=== PATIENT | male | born 1945 | race Caucasian/White ===

== ENCOUNTER → 2024-01-24 | Outpatient (CLI) | payer OTHER, SELFPAY ==
--- NOTE | 2024-01-24 12:56 | ECHOCS_ITS ---
Reason For Study: ASHD Procedure This was a 2D Doppler, Color Flow transthoracic echocardiogram. The study was technically difficult. Contrast injection was performed. Exam performed in department. Left Ventricle Mild concentric left ventricular hypertrophy. Normal LV size. The left ventricular ejection fraction is 60 %. Normal diastology for age. Right Ventricle Mildly dilated right ventricle. Normal systolic function. Atria There is mild biatrial dilatation. Mitral Valve Trivial mitral valve insufficiency. Tricuspid Valve Normal tricuspid valve. Aortic Valve Trisinus/trileaflet aortic valve. Pulmonic Valve The pulmonic valve is not well visualized. Great Vessels Mildly dilated aortic root. Pericardium/Pleural No pericardial effusion. Medication 22 gauge I.V. with prn adaptor inserted into right arm. Diluted definity 2ml given slow IV push to enhance endocardial definition. MMode/2D Measurements & Calculations LVIDd: 4.3 cm IVSd: 1.2 cm Ao root diam: 3.8 cm LVIDs: 2.7 cm LVPWd: 1.2 cm FS: 37.8 % LAV(MOD-bp): 42.3 ml LVAd ap4: 25.4 cm2 SV(MOD-sp4): 37.8 ml LAV(MOD-bp) Indexed: 18.5 ml/m2 LVLd ap4: 7.6 cm LAV(MOD-sp2): 37.2 ml EDV(MOD-sp4): 68.0 ml LAV(MOD-sp4): 45.2 ml EDV(sp4-el): 71.6 ml LVAs ap4: 14.4 cm2 LVLs ap4: 6.2 cm ESV(MOD-sp4): 30.2 ml ESV(sp4-el): 28.3 ml EF(MOD-sp4): 55.7 % EF(sp4-el): 60.5 % SV(sp4-el): 43.3 ml LA A4 area: 17.8 cm2 LA dimension(2D): 3.7 cm RA A4 area: 18.7 cm2 TAPSE: 1.6 cm Time Measurements MV dec time: 0.27 sec Doppler Measurements & Calculations MV E max raúl: 54.3 cm/sec Lat Peak E' Raúl: 10.8 cm/sec Med Peak E' Raúl: 6.0 cm/sec MV A max raúl: 68.0 cm/sec E/E' lat: 5.0 E/E' med: 9.1 MV E/A: 0.80 MV V2 max: 62.7 cm/sec MV dec slope: 202.2 cm/sec2 Ao V2 max: 121.6 cm/sec MV max P.6 mmHg Ao max P.9 mmHg MV V2 mean: 38.3 cm/sec Ao V2 mean: 79.9 cm/sec MV mean P.65 mmHg Ao mean P.0 mmHg MV V2 VTI: 21.0 cm Ao V2 VTI: 25.1 cm AV (velocity ratio): 0.76 LV V1 max: 93.6 cm/sec PA V2 max: 88.2 cm/sec LV V1 max P.5 mmHg PA V2 mean: 56.1 cm/sec LV V1 mean P.6 mmHg LV V1 mean: 57.3 cm/sec LV V1 VTI: 19.0 cm ECHO/Echo Complete W/ Contrast Interpretation Summary The study was technically difficult. Mild concentric left ventricular hypertrophy. The left ventricular ejection fraction is 60 %. Mildly dilated right ventricle. There is mild biatrial dilatation. Mildly dilated aortic root. Ordering Physician: Sotero Colon Referring Physician: Sotero Colon Performed By: Elda Montes RCS
== END | disposition home or self-care (01) ==
LOC: CVS 12:56
PROVIDERS: Referring Provider Chiropractor; Visit Provider Chiropractor
DX: I25.10 Atherosclerotic heart disease of native coronary artery without angina pectoris (principal)
CPT/HCPCS: 93306; Q9957; A4216; C8929